=== PATIENT | male | born 1950 | race Caucasian/White ===

== ENCOUNTER 2017-12-20 06:02 | Inpatient (IN) | payer OTHER ==
[~2017-12-20] VITALS: Ht 175.3 cm; Wt 105.7 kg
[2017-12-20 06:32] VITALS: BP 136/85
[2017-12-20 14:18] VITALS: BP 147/90
[2017-12-20 16:30] VITALS: BP 124/92
[2017-12-20 21:05] VITALS: BP 151/92
[2017-12-21 04:58] VITALS: BP 123/80
[2017-12-21 09:32] VITALS: BP 153/98
[2017-12-21 16:41] VITALS: BP 148/93
[2017-12-21 21:06] VITALS: BP 135/83
[2017-12-22 05:29] VITALS: BP 124/80
[2017-12-22 08:53] VITALS: BP 111/72
[2017-12-22 13:04] VITALS: BP 127/87
[2017-12-22 13:45] VITALS: BP 123/81
[2017-12-22 16:53] VITALS: BP 126/80
[2017-12-22 20:35] VITALS: BP 117/81
[2017-12-23] VITALS (9 sets, daily range): BP systolic 94–139; BP diastolic 74–94
[2017-12-23 10:25] LABS: CHLORIDE SERUM 104 mmol/L (98-107); POTASSIUM SERUM 3.5 mmol/L (3.5-5.1); SODIUM SERUM 140 mmol/L (136-145)
[2017-12-23 10:34] LABS: CALCIUM 10.2 mg/dL (8.5-10.1); CREATININE SERUM 0.8 mg/dL (0.7-1.3); GFR1 > 60 mL/min; GLUCOSE SERUM 153 mg/dL (74-106)
[2017-12-23 18:58] LABS: BASOPHIL % 0.2 % (0-2); PLATELET COUNT 180 x10^3mcL (130-400); RED CELL DISTRIBUTION WIDTH 14.1 % (11.5-14.5)
[2017-12-24 03:56] LABS: BASOPHIL % 0.3 % (0-2); PLATELET COUNT 164 x10^3mcL (130-400); RED CELL DISTRIBUTION WIDTH 13.6 % (11.5-14.5)
[2017-12-24 03:58] LABS: CALCIUM 9.4 mg/dL (8.5-10.1); CARBON DIOXIDE 27.2 mmol/L (21-32); CHLORIDE SERUM 104 mmol/L (98-107); CREATININE SERUM 0.8 mg/dL (0.7-1.3); GFR1 > 60 mL/min; GLUCOSE SERUM 119 mg/dL (74-106); POTASSIUM SERUM 3.5 mmol/L (3.5-5.1); SODIUM SERUM 138 mmol/L (136-145)
[2017-12-24 05:58] VITALS: BP 128/93
[2017-12-24 09:12] VITALS: BP 121/82
[2017-12-24 13:35] VITALS: BP 147/94
[2017-12-24 17:57] VITALS: BP 143/93
[2017-12-24 21:12] VITALS: BP 136/86
[2017-12-25 04:44] VITALS: BP 140/78
[2017-12-25 14:05] VITALS: BP 144/96
[2017-12-25 17:39] VITALS: BP 139/90
[2017-12-25 20:58] VITALS: BP 141/84
[2017-12-26 04:40] VITALS: BP 133/79
[2017-12-26 09:14] VITALS: BP 141/81
[2017-12-26 14:02] VITALS: BP 135/96
[2017-12-26 17:44] VITALS: BP 148/91
[2017-12-26 21:26] VITALS: BP 164/97
[2017-12-26 23:14] VITALS: BP 157/92
[2017-12-27 05:33] VITALS: BP 149/90
[2017-12-27 10:06] VITALS: BP 135/72
[2017-12-27 13:33] VITALS: BP 131/84
[2017-12-27 17:33] VITALS: BP 143/89
[2017-12-27 21:33] VITALS: BP 115/69
[2017-12-28 05:00] VITALS: BP 126/78
[2017-12-28 09:20] VITALS: BP 117/71
[2017-12-28 14:54] VITALS: Ht 175.3 cm; Wt 105.7 kg
[2017-12-28 14:59] VITALS: BP 137/77
[2017-12-28] MEDS ORDERED: XARELTO10 M1 PO (15:06)
[2017-12-28] MEDS ORDERED: METFORMIN HCL500 MG (15:09)
[2017-12-28] MEDS ORDERED: AMITRIPTYLINE H10 MG (15:09)
[2017-12-28] MEDS ORDERED: METOPROLOL TART50 MG (15:10)
[2017-12-28] MEDS ORDERED: PRAVACHOL20 MG (15:10)
[2017-12-28] MEDS ORDERED: LEVOTHYROXINE0.1 M2 (15:10)
[2017-12-28] MEDS ORDERED: DIOVAN80 MG (15:11)
[2017-12-28] MEDS ORDERED: CYCLOBENZAPRINE5 MG (15:12)
[2017-12-28] MEDS ORDERED: QUINAPRIL20 MG PO (15:13)
[2017-12-28] MEDS ORDERED: GOOD SENSE OMEP20 MG (15:14)
[2017-12-28] MEDS ORDERED: ASPIRIN ADULT L81 M5 (15:17)
[2017-12-28 15:20] VITALS: BP 137/77
[2017-12-28] MEDS ORDERED: XARELTO15 M1 PO (15:36)
[2017-12-28] MEDS ORDERED: XARELTO10 M1 GT (15:36)
[2017-12-28] MEDS ORDERED: EPZICOM1 TAB (15:51)
[2017-12-28] MEDS ORDERED: NOR10T PO (15:51)
== END 2017-12-28 17:52 | disposition home health service (06) | DRG 470 ==
LOC: MU 06:02 → DU 12-23 23:09
PROVIDERS: Internal Medicine; Neuromusculoskeletal Medicine, Sports Medicine
PROC: 0SRD069 Replacement of Left Knee Joint with Oxidized Zirconium on Polyethylene Synthetic Substitute, Cemented, Open Approach (ICD-10-PCS; principal; 2017-12-20 07:30)
DX: M17.12 Unilateral primary osteoarthritis, left knee (principal); I74.8 Embolism and thrombosis of other arteries; E11.9 Type 2 diabetes mellitus without complications; Y83.8 Other surgical procedures as the cause of abnormal reaction of the patient, or of later complication, without mention of misadventure at the time of the procedure; Y79.3 Surgical instruments, materials and orthopedic devices (including sutures) associated with adverse incidents; Y92.230 Patient room in hospital as the place of occurrence of the external cause; I10 Essential (primary) hypertension; E03.9 Hypothyroidism, unspecified; E66.01 Morbid (severe) obesity due to excess calories; Z79.82 Long term (current) use of aspirin; Z79.84 Long term (current) use of oral hypoglycemic drugs
CPT/HCPCS: 36600; 82962; 94150; 97110-GP; 97116-GP; 97139; 97530-GP; 97535-GP; C1713; C1776; J0690; J1644; J1650; J1815; J2250; J2270; J2405; J2704; J3010; J3490; J7030; Q0092; Q9967